=== PATIENT | male | born 1995 | race Two or more races ===

== ENCOUNTER 2019-10-25 11:06 | Emergency (ER) | payer MEDICAID ==
[~2019-10-25] VITALS: Ht 182.9 cm; Wt 114.0 kg
[2019-10-25] MEDS ORDERED: HYDROCODONE/ACETAMINOPHEN 5/325MG TABLET PO STA (12:41)
[2019-10-25] MEDS ORDERED: ONDANSETRON 4MG ODT PO STA (12:41)
[2019-10-25 13:28] LABS: HEMATOCRIT. 49.9 % (42.0-52.0); HEMOGLOBIN. 17.4 g/dL (14.0-18.0); MEAN CORPUSCULAR HEMOGLOBIN 29.1 pg (28.0-32.0); MEAN CORPUSCULAR VOLUME 83.7 fL (80.0-94.0); MEAN PLATELET VOLUME 8.2 fl (7.4-10.4); PLATELET 326 x1000/uL (130-400); RED BLOOD CELL COUNT 5.96 mill/uL (4.7-6.1); RED CELL DISTRIBUTION WIDTH 12.9 % (11.6-14.6)
[2019-10-25 13:32] LABS: INR 1.1; PROTHROMBIN TIME 11.3 sec (9.6-11.0)
[2019-10-25 13:33] LABS: CHLORIDE 99 mEq/L (98-107)
[2019-10-25] MEDS ORDERED: ONDANSETRON HCL 4MG TABLET PO ONE (14:00)
[2019-10-25 14:36] LABS: PLATELET ESTIMATE NORMAL
[2019-10-25 15:07] VITALS: BP 119/70
== END 2019-10-25 15:23 | disposition home or self-care (01) ==
LOC: ER 11:06
DX: A05.9 Bacterial foodborne intoxication, unspecified (principal)
CPT/HCPCS: 36415; 80053; 83690; 85025; 85610; 99283; Q0162